=== PATIENT | female | born 1990 | race Caucasian/White ===

== ENCOUNTER 2019-04-22 11:46 | Day surgery (SDC) | payer MEDICAID ==
[~2019-04-22] VITALS: Ht 177.8 cm; Wt 96.6 kg
[2019-04-22 12:06] LABS: HCG,QUAL RESULT NEGATIVE (NEGATIVE)
[2019-04-22] MEDS ORDERED: BACITRACIN ZINC 15 GM TOPICAL OINTMENT TP ONE (12:45)
[2019-04-22] MEDS ORDERED: SEVOFLURANE 15 MIN GAS INH ONE (12:45)
[2019-04-22] MEDS ORDERED: LR 1,000 ML IV.SOLN IV ONE (12:45)
[2019-04-22] MEDS ORDERED: BUPIVACAINE /EPINEPHRINE/PF 0.25% 30 ML VIAL INJ ONE (12:45)
[2019-04-22] MEDS ORDERED: KETOROLAC TROMETHAMINE 30 MG VIAL IVP ONE (12:45)
[2019-04-22] MEDS ORDERED: fentaNYL CITRATE 250 MCG/5 ML AMP IV ONE (12:45)
[2019-04-22] MEDS ORDERED: DEXAMETHASONE SOD PHOSPHATE 4 MG/ML VIAL IVP ONE (12:45)
[2019-04-22] MEDS ORDERED: ONDANSETRON HCL 4 MG/2 ML VIAL IVP ONE (12:45)
[2019-04-22] MEDS ORDERED: PROPOFOL 200MG/ 20ML VIAL (DIPRIVAN) IV ONE (12:45)
[2019-04-22] MEDS ORDERED: MIDAZOLAM HCL 5 MG/5 ML VIAL IVP ONE (12:45)
[2019-04-22] MEDS ORDERED: ROCURONIUM BROMIDE 10 MG/ML (ZEMURON) IV ONE (12:45)
[2019-04-22] MEDS ORDERED: SUCCINYLCHOLINE CHLORIDE 20 MG/ML(QUELICIN) IVP ONE (12:45)
[2019-04-22] MEDS ORDERED: LR 1,000 ML IV SCH (13:54)
[2019-04-22] MEDS ORDERED: MEPERIDINE HCL/PF 25 MG/ML DISP.SYRIN IVP PRN (14:00)
[2019-04-22] MEDS ORDERED: HYDROmorphone 2 MG/ML VIAL IVP PRN ×2 (14:00)
[2019-04-22] MEDS ORDERED: HYDROmorphone 1 MG INJ. 1 MG/ML AMPUL IVP PRN (14:00)
[2019-04-22] MEDS ORDERED: HYDROmorphone 2 MG/ML VIAL ONE (14:50)
[2019-04-22 16:28] VITALS: BP_SYST 110
== END 2019-04-22 17:55 | disposition home or self-care (01) ==
LOC: SDS 11:46
PROVIDERS: ATTEND Otolaryngology
DX: J35.01 Chronic tonsillitis (principal); E78.5 Hyperlipidemia, unspecified; J45.20 Mild intermittent asthma, uncomplicated; E66.3 Overweight
CPT/HCPCS: 42826; 84703; 88304; J0330; J1100; J1170; J1885; J2250; J2405; J2704; J3010; J3490; J7120